=== PATIENT | male | born 1985 | race African-American/Black ===

== ENCOUNTER 2024-03-11 06:42 | Emergency (ER) | payer OTHER ==
[2024-03-11 06:56] VITALS: RESP 19; BMI 39.6
[2024-03-11 07:31] VITALS: BP 133/94; PULSE 83
== END 2024-03-11 07:45 | disposition home or self-care (01) ==
LOC: JER 06:42
DX: R00.0 Tachycardia, unspecified (principal)
CPT/HCPCS: 99283-25